=== PATIENT | male | born 1985 | race American Indian/Alaskan Native ===

== ENCOUNTER 2022-03-29 14:22 | Emergency (ER) | payer SELFPAY ==
[2022-03-29] MEDS ORDERED: IBUPROFEN 800 MG TAB PO ONE (17:12)
--- NOTE | 2022-03-29 17:12 | Emergency Department Report ---
ED Fall HPI - General Chief Complaint: Back Pain/Injury Stated Complaint: WORK RELATED fall Time Seen by Provider: 03/29/22 16:58 Source: patient Mode of arrival: Ambulatory - Related Data Allergies Allergy/AdvReac Type Severity Reaction Status Date / Time No Known Allergies Allergy Verified 03/29/22 14:33 ED Review of Systems ROS: Stated complaint: WORK RELATED fall Other details as noted in HPI Comment: All other systems reviewed and negative ED Past Medical Hx - Past Medical History Previous Medical History?: No - Surgical History Past Surgical History?: No - Family History Family history: no significant - Social History Smoking Status: Never Smoker Substance Use Type: None ED Physical Exam - General Limitations: No Limitations General appearance: alert, in no apparent distress - Head Head exam: Present: atraumatic, normocephalic - Eye Eye exam: Present: normal appearance - ENT ENT exam: Present: mucous membranes moist - Neck Neck exam: Present: normal inspection - Respiratory Respiratory exam: Present: normal lung sounds bilaterally. Absent: respiratory distress - Cardiovascular Cardiovascular Exam: Present: regular rate, normal rhythm. Absent: systolic murmur, diastolic murmur, rubs, gallop - GI/Abdominal GI/Abdominal exam: Present: soft, normal bowel sounds - Rectal Rectal exam: Present: deferred - Extremities Exam Extremities exam: Present: normal inspection - Back Exam Back exam: Present: normal inspection - Neurological Exam Neurological exam: Present: alert, oriented X3 - Psychiatric Psychiatric exam: Present: normal affect, normal mood - Skin Skin exam: Present: warm, dry, intact, normal color. Absent: rash ED Course Vital Signs 03/29/22 14:31 Temperature 97.9 F Pulse Rate 90 Respiratory 18 Rate Blood Pressure 107/77 O2 Sat by Pulse 100 Oximetry ED Medical Decision Making - Radiology Data Radiology results: report reviewed, image reviewed Critical care attestation.: If time is entered above; I have spent that time in minutes in the direct care of this critically ill patient, excluding procedure time. ED Disposition Clinical Impression: Fall, Contusion Disposition: 01 HOME / SELF CARE / HOMELESS Is pt being admited?: No Does the pt Need Aspirin: No Condition: Stable Additional Instructions: Rest, ice and elevate your wrist and hand for comfort. Warm compresses may help with your back [id number] Motrin and Tylenol for pain Diet and activity as tolerated If pain persist follow-up with PCP. Referrals been given below. Referrals: MING CAROLINA MD [Staff Physician] - 3-5 Days Forms: Work/School Release Form(ED) Time of Disposition: 17:36
--- NOTE | 2022-03-29 17:39 | XRay Report ---
Right hand, 2 views Right wrist, 2 views HISTORY: Pain, fifth digit COMPARISON: None FINDINGS: Right hand: No acute fracture or malalignment. No significant arthritis. There is no focal soft tissu e abnormality. Right wrist: No acute fracture. Carpal alignment is preserved. No significant arthritis. No focal sof t tissue abnormality. IMPRESSION: No acute osseous findings in the right hand or wrist. Signer Name: Camron Nagel MD Signed: 03/29/2022 5:35 PM Workstation Name: [id number]
[2022-03-29 18:34] VITALS: BP 102/77
== END 2022-03-29 18:33 | disposition home or self-care (01) ==
LOC: ED 14:22
DX: S30.0XXA Contusion of lower back and pelvis, initial encounter (principal); W18.39XA Other fall on same level, initial encounter; Y93.89 Activity, other specified; Y92.89 Other specified places as the place of occurrence of the external cause; Y99.8 Other external cause status
CPT/HCPCS: 99283